=== PATIENT | female | born 1980 | race Two or more races ===

== ENCOUNTER 2021-06-03 12:46 | Emergency (ER) | payer OTHER ==
[~2021-06-03] VITALS: Ht 160 cm; Wt 62.1 kg
[2021-06-03] MEDS ORDERED: LIPITOR40 MG (13:02)
[2021-06-03] MEDS ORDERED: LEVOTHYROXINE25 MCG (13:03)
[2021-06-03] MEDS ORDERED: MECLIZINE HCL25 MG PO (17:53)
[2021-06-03] MEDS ORDERED: BUTALBITAL-ACE1 EACH PO (17:53)
== END 2021-06-03 18:41 | disposition home or self-care (01) ==
LOC: ER 12:46
DX: R42 Dizziness and giddiness (principal)

== ENCOUNTER 2023-03-18 09:38 | Outpatient (CLI) | payer OTHER ==
[~2023-03-18 09:38] MED LIST: BUTALBITAL-ACE1 EACH PO; LEVOTHYROXINE25 MCG; LIPITOR40 MG; MECLIZINE HCL25 MG PO
== END 2023-03-18 09:48 | disposition home or self-care (01) ==
LOC: RX STUDY 09:38
PROVIDERS: ATTEND Obstetrics & Gynecology
DX: N92.1 Excessive and frequent menstruation with irregular cycle (principal)

== ENCOUNTER 2024-08-01 07:06 | Emergency (ER) | payer OTHER ==
[~2024-08-01] VITALS: Ht 160 cm; Wt 77.1 kg
[2024-08-01] MEDS ORDERED: GENTAMICIN SULFATE 0.15 MG/DR DROPS 5ML OP ONE (09:43)
[2024-08-01] MEDS ORDERED: TETRACAINE HCL 20 DR/ML DROPS OP ONE (09:45)
[2024-08-01] MEDS ORDERED: GENTAMICIN SULFATE 3.5 GM TUBE OP ONE (09:45)
== END 2024-08-01 10:20 | disposition home or self-care (01) ==
LOC: ER 07:07
DX: H10.212 Acute toxic conjunctivitis, left eye (principal)

== ENCOUNTER 2025-01-05 22:30 | Emergency (ER) | payer OTHER ==
[~2025-01-05] VITALS: Ht 160 cm; Wt 72.6 kg
[2025-01-06] MEDS ORDERED: KETOROLAC TROMETHAMINE 30 MG VIAL IV STA (01:15)
[2025-01-06] MEDS ORDERED: MEPERIDINE HCL/PF 50 MG/ML VIAL IM STA (01:16)
[2025-01-06] MEDS ORDERED: PROMETHAZINE HCL 50 MG/ML AMPUL IM STA (01:16)
[2025-01-06] MEDS ORDERED: KETOROLAC TROMETHAMINE 30 MG VIAL ONE (01:20)
[2025-01-06] MEDS ORDERED: PROMETHAZINE HCL 50 MG/ML AMPUL IM ONE (01:21)
[2025-01-06 01:37] LABS: HEMATOCRIT 36.1 % (36.0-45.00); HEMOGLOBIN 11.8 g/dL (12.0-15.00); MEAN CELL VOLUME 88.7 fL (80.00-100.00); MEAN CORPUSCULAR HEMOGLOBIN 29.1 pg (27.00-32.0); MEAN CORPUSCULAR HGB CONC 32.8 g/dl (32.0-36.0); PLATELET COUNT 330 K/uL (150-450); RED BLOOD COUNT 4.07 M/uL (4.00-6.00); RED CELL DISTRIBUTION WIDTH 15.8 % (11.5-14.5)
[2025-01-06 01:39] LABS: URINE APPEARANCE Clear; URINE BILIRRUBIN Negative (NEGATIVE); URINE BLOOD Trace; URINE COLOR Yellow; URINE GLUCOSE Negative (NEGATIVE); URINE KETONE Negative (NEGATIVE); URINE LEUKOCYTE Moderate; URINE NITRATE Negative; URINE PROTEIN Negative (NEGATIVE); URINE UROBILINOGEN 0.2 E.U./dl
[2025-01-06 01:40] LABS: URINE BACTERIA 7550.5 uL (0.0-1933); URINE EPITHELIAL CELLS 7.9 uL (0.0-38.8); URINE RBC 7.5 uL (0.0-20.8); URINE WBC 208.3 uL (0.0-23.2)
[2025-01-06 01:41] LABS: URINE CAST 0.14 uL (0.0-1.40)
[2025-01-06 02:06] LABS: CALCIUM 9.5 mg/dL (8.5-10.1); CREATININE SERUM 0.78 mg/dL (0.55-1.02); GFR 80.61; POTASSIUM 3.96 mEq/L (3.5-5.1)
[2025-01-06] MEDS ORDERED: TAMSULOSIN HCL 0.4 MG CAP PO STA (03:56)
[2025-01-06] MEDS ORDERED: TAMSULOSIN HCL 0.4 MG CAP PO ONE (04:01)
== END 2025-01-06 04:06 | disposition home or self-care (01) ==
LOC: ER 22:33
DX: N20.1 Calculus of ureter (principal); R10.9 Unspecified abdominal pain
CPT/HCPCS: 36415; 74176; 96365; 96372; 99284; J1885; J2250

== ENCOUNTER 2025-01-10 16:53 | Emergency (ER) | payer OTHER ==
[~2025-01-10] VITALS: Ht 160 cm; Wt 72.6 kg
[2025-01-10] MEDS ORDERED: KETOROLAC TROMETHAMINE 30 MG VIAL IV ONE (17:15)
== END 2025-01-10 19:09 | disposition home or self-care (01) ==
LOC: ER 16:55
DX: R10.9 Unspecified abdominal pain (principal); R10.2 Pelvic and perineal pain; I10 Essential (primary) hypertension; E03.8 Other specified hypothyroidism

== ENCOUNTER 2025-02-04 10:08 | Outpatient (CLI) | payer OTHER | END 2025-02-04 10:12 | disposition home or self-care (01) | LOC: RAD 10:08 | DX: N20.0 Calculus of kidney (principal) ==